=== PATIENT | female | born 1990 | race Two or more races ===

== ENCOUNTER 2017-04-01 16:15 | Emergency (ER) | payer OTHER ==
[~2017-04-01] VITALS: Ht 160 cm; Wt 58.1 kg
[2017-04-01 16:20] VITALS: BP 114/74
--- NOTE | 2017-04-01 16:36 | Emergency Room Report ---
History of Present Illness General Chief Complaint: General Complaint Source: Patient Present Illness HPI 26-year-old female presents emergency department complaining of vaginal itching and burning with urination times one week. Patient states she has been taking her antibiotic for UTI however she believes that her itchy symptoms have progressed. Patient is worried that her urinary tract infection is not being treated properly by the antibiotic she is on. Patient denies hematuria patient reports burning and tenderness to the external labia she rates as 7 on a 10 in severity. Denies tender palpable lymph nodes, rashes elsewhere on the body, open lesions. Denies abdominal pain or . Denies CP, Palpitations, LOC , AMS, dizziness, Changes in Vision, Sensation, paresthesias, or a sudden severe headache. Allergies: Coded Allergies: No Known Allergies (Unverified , 04/01/17) Patient History Past Medical History: see triage record Past Surgical History: none Pertinent Family History: none Last Menstrual Period: 02/05/17 Now: No Immunizations: UTD Reviewed Nursing Documentation: PMH: Agreed, PSxH: Agreed Nursing Documentation-PMH Past Medical History: No Stated History Review of Systems All Other Systems: negative except mentioned in HPI Physical Exam Vital Signs Date Time Temp Pulse Resp B/P Pulse Ox O2 Delivery O2 Flow Rate FiO2 04/01/17 16:20 98.2 74 16 114/74 100 Room Air Sp02 EP Interpretation: reviewed, normal General Appearance: no apparent distress, alert, GCS 15, non-toxic Head: normocephalic, atraumatic Eyes: bilateral eye PERRL, bilateral eye normal inspection ENT: hearing grossly normal, normal pharynx, no angioedema, normal voice Neck: full range of motion, supple/symm/no masses Respiratory: chest non-tender, lungs clear, normal breath sounds, speaking full sentences Cardiovascular #1: regular rate, rhythm, no edema Gastrointestinal: normal bowel sounds, non tender, soft, no guarding, no rebound Genitourinary: normal inspection, no CVA tenderness, adnexa normal, bladder normal, other - Swelling to external labia, erythema Musculoskeletal: back normal, gait/station normal, normal range of motion, non- tender Neurologic: alert, oriented x3, responsive, motor strength/tone normal, sensory intact, speech normal Psychiatric: judgement/insight normal, memory normal, mood/affect normal Skin: normal color, no rash, warm/dry, well hydrated Lymphatic: no adenopathy Medical Decision Making PA Attestation Dr. Dozier is my supervising Physician whom patient management has been discussed with. Diagnostic Impression: Primary Impression: Vaginitis and vulvovaginitis ER Course 26-year-old female presents emergency department complaining of vaginal itching and burning with urination times one week. Patient states she has been taking her antibiotic for UTI however she believes that her itchy symptoms have progressed. Patient is worried that her urinary tract infection is not being treated properly by the antibiotic she is on. Patient denies hematuria patient reports burning and tenderness to the external labia she rates as 7 on a 10 in severity. Denies tender palpable lymph nodes, rashes elsewhere on the body, open lesions. Denies abdominal pain or . Denies CP, Palpitations, LOC , AMS, dizziness, Changes in Vision, Sensation, paresthesias, or a sudden severe headache. Ddx considered but are not limited to UTi , Pyelo, STI, Stone, Cystitis, vaginal laceration, vaginitis. Vital signs: are WNL, pt. is afebrile H& PE are most consistent with: Vaginitis secondary to abx treatment for UTI. ORDERS: - UA labs are attached : no infection at this time. ED INTERVENTIONS: None required at this time. DISCHARGE: At this time pt. is stable for d/c to home. Will provide printed patient care instructions, and any necessary prescriptions. Care plan and follow up instructions have been discussed with the patient prior to discharge. Labs Test 04/01/17 16:34 Urine Color Pale yellow Urine Appearance Clear Urine pH 7 (4.5-8.0) Urine Specific [place] 1.010 (1.005-1.035) Urine Protein Negative (NEGATIVE) Urine Glucose (UA) Negative (NEGATIVE) Urine Ketones Negative (NEGATIVE) Urine Occult Blood Negative (NEGATIVE) Urine Nitrite Negative (NEGATIVE) Urine Bilirubin Negative (NEGATIVE) Urine Urobilinogen Normal MG/DL (0.0-1.0) Urine Leukocyte Esterase 2+ (NEGATIVE) Urine RBC 0-2 /HPF (0 - 2) Urine WBC 2-4 /HPF (0 - 2) Urine Squamous Epithelial Cells Few /LPF (NONE/OCC) Urine Bacteria Few /HPF (NONE) Last Vital Signs Date Time Temp Pulse Resp B/P Pulse Ox O2 Delivery O2 Flow Rate FiO2 04/01/17 16:20 98.2 74 16 114/74 100 Room Air Disposition: HOME, SELF-CARE Condition: Stable Scripts Phenazopyridine Hcl* (PYRIDIUM*) 200 Mg Tablet 200 MG ORAL THREE TIMES A DAY for 3 Days, #9 TAB 0 Refills Prov: Eliz Samson 04/01/17 Fluconazole (DIFLUCAN) 150 Mg Tablet 150 MG PO DAILY for 3 Days, #3 TAB Prov: Eliz Samson 04/01/17 Patient Instructions: Vaginitis, [id number] Additional Instructions: Take medications as directed. Follow up with PCP in 3-5 days Return sooner to ED if new symptoms occur, or current symptoms become worse. - Please note that this Emergency Department Report was dictated using [employer] operator technology software, occasionally this can lead to erroneous entry secondary to interpretation by the dictation equipment. Eliz Samson Apr 01, 2017 16:36
[2017-04-01 16:53] LABS: APPEARANCE,URINE CLEAR; KETONES,URINE NEGATIVE (NEGATIVE); LEUKOCYTE ESTERASE ,URINE 2+ (NEGATIVE); NITRITE,URINE NEGATIVE (NEGATIVE); PH,URINE 7 (4.5-8.0); PROTEIN,URINE NEGATIVE (NEGATIVE); UROBILINOGEN,URINE NORMAL MG/DL (0.0-1.0)
[2017-04-01 17:07] LABS: BACTERIA,URINE FEW /HPF; RBC,URINE 0-2 /HPF (0 - 2); SQUAMOUS EPITHELIAL CELL,UR FEW /LPF (NONE/OCC)
[2017-04-01] MEDS ORDERED: PHENAZOPYRIDIN200 MG ORAL (17:35)
[2017-04-01] MEDS ORDERED: DIFLUCAN150 MG PO (17:35)
[2017-04-01 17:50] VITALS: BP 109/73
== END 2017-04-01 17:50 | disposition home or self-care (01) ==
LOC: EMR 16:55
DX: N76.0 Acute vaginitis (principal)
CPT/HCPCS: 81003; 99284